=== PATIENT | female | born 1980 | race Caucasian/White ===

== ENCOUNTER 2017-12-04 17:42 | Emergency (ER) | payer OTHER ==
[2017-12-04 18:47] VITALS: BP 116/77
--- NOTE | 2017-12-04 20:26 | UC ---
Sin Edouard Natalie, scribed for John Brown MD on 12/04/17 at 1827 . Dizzy HPI HPI Summary: The pt is a 37 y/o F presenting to [facility] c/o lightheadedness, chest pressure, and increased heart rate starting at 17:00 today. The chest pressure lasted for about fifteen minutes, and the dizziness only lasted for a few minutes. The pressure is described as 3/10. She currently has some dizziness in UC. The pts oral intake has been normal, but she has decreased her sugar intake within the last week. The pt additionally c/o nausea and SOB. She hasnt had any issues exercising. She had a similar episode three years ago. The pt had a cold last week without a cough. LNMP was last week. No hx of anemia, GERD, cardiac diseases, or blood clots. She is not a smoker. - History Of Current Complaint Stated Complaint: LIGHT-HEADED Time Seen by Provider: 12/04/17 17:58 Hx Obtained From: Patient Hx Last Menstrual Period: 11/28/2017 Onset/Duration: Sudden Onset, Still Present Severity Initially: Mild Severity Currently: Mild Pain Intensity: 3 Pain Scale Used: 0-10 Numeric Character: Lightheaded, Dizzy Aggravating Factor(s): Nothing Alleviating Factor(s): Nothing Associated Signs And Symptoms: Positive: Nausea, Chest Pain, SOB, Change In Diet. Negative: Decreased Oral Intake - Allergies/Home Medications Allergies/Adverse Reactions: Allergies Allergy/AdvReac Type Severity Reaction Status Date / Time No Known Allergies Allergy Verified 12/04/17 18:00 Home Medications: Home Medications NK [No Home Medications Reported] 12/04/17 [History Confirmed 12/04/17] PMH/Surg Hx/FS Hx/Imm Hx Cardiovascular History: Other - NEGATIVE: cardiac disease Other Cardiovascular History: . GI/ History: Other - NEGATIVE: GERD Other GI/ History: . - Surgical History Surgical History: Yes Surgery Procedure, Year, and Place: Elbow surgery as child - Family History Known Family History: Negative: Cardiac Disease - Social History Alcohol Use: Occasionally Substance Use Type: None Smoking Status (MU): Never Smoked Tobacco - Immunization History Most Recent Influenza Vaccination: 2013 Most Recent Tetanus Shot: 09/10/14 Most Recent Pneumonia Vaccination: none Review of Systems Respiratory: Shortness Of Breath Cardiovascular: Chest Pain Gastrointestinal: Nausea, Other - decrease in sugar intake Neurological: Other - lightheadedness and dizziness All Other Systems Reviewed And Are Negative: Yes Physical Exam - Summary Physical Exam Summary: General: well-appearing, no pain distress Skin: warm, color reflects adequate perfusion, dry Head: normal Eyes: EOMI, KEON ENT: normal Neck: supple, nontender Respiratory: CTA, breath sounds present Cardiovascular: RRR Abdomen: soft, nontender Bowel: present Musculoskeletal: normal, strength/ROM intact Neurological: normal, sensory/motor intact, A&O x3 Psychological: affect/mood appropriate Triage Information Reviewed: Yes Vital Signs: Initial Vital Signs Temp 99.9 F 12/04/17 18:00 Pulse 76 12/04/17 18:00 Resp 18 12/04/17 18:00 BP 121/86 12/04/17 18:00 Pulse Ox 98 12/04/17 18:00 Vital Signs Reviewed: Yes Diagnostics - EKG Cardiac Rate: NL Cardiac Rhythm: Sinus: Normal - 72 BPM at 17:51 Ectopy: None ST Segment: Normal Dizzy Course/Dx - Course Course Of Treatment: PATIENT REPORTS CHEST TIGHTNESS FOR 15 MINUTES AND LIGHT HEADEDNESS AND RACING HEART FOR APPOROXIMATELY 4 MINUTES. SHE IS NOT HAVING THESE SX IN THE CLINIC. I DISCUSSED GOING TO THE EMERGENCY DEPARTMENT FOR FURTHER EVALUATION TO INCLUDE TROPONIN AND DDIMER. PATIENT PREFER TO GOT GO TO THE ED AND F/U WITH HER PMD. WE DISCUSSED IF THE SX RETURN FOR HER TO GO DIRECTLY TO THE ED; SHE AGREED. - Differential Dx/Diagnosis Provider Diagnoses: LIGHT HEADEDNESS. PALPITATIONS. CHEST PAIN Discharge - Discharge Plan Condition: Stable Disposition: HOME Patient Education Materials: Chest Pain (ED), Heart Palpitations (ED), Lightheadedness (ED) Referrals: Anne-Marie Hess MD [Primary Care Provider] - Additional Instructions: FOLLOW UP WITH YOUR DOCTOR. CALL TOMORROW FOR AN APPOINTMENT. GO TO THE EMERGENCY DEPARTMENT FOR ANY WORSENING OF YOUR CONDITION; CHEST PAIN, YOUR HEART IS RACING, YOU FEEL LIKE YOU ARE GOING TO PASS OUT OR QUESTIONS OR CONCERNS. YOUR BLOOD PRESSURE WAS ELEVATED TODAY; FOLLOW UP WITH YOUR PRIMARY CARE DOCTOR WITHIN ONE WEEK. The documentation as recorded by the Sin lara Natalie accurately reflects the service I personally performed and the decisions made by me, John Brown MD.
[2017-12-05 10:58] LABS: ABS Basophils 0 10^3/ul (0-0.2); ABS Eosinophils 0.1 10^3/ul (0-0.6); ABS Lymphocytes 1.9 10^3/ul (1.0-4.8); ABS Monocytes 0.5 10^3/ul (0-0.8); ABS Neutrophils 4.5 10^3/ul (1.5-7.7); ABS Nucleated RBC 0 10^3/ul; Eosinophil % 0.9 % (0-6); Hematocrit 39 % (35-47); Mean Corpuscular HGB Conc 33 g/dl (31-36); Mean Corpuscular Hemoglobin 28 pg (27-31); Mean Corpuscular Volume 84 fL (80-97); Mean Platelet Volume 8 um3 (7.4-10.4); Nucleated Red Blood Cells % 0.1; Platelet Count 235 10^3/ul (150-450); Red Blood Count 4.65 10^6/ul (4.0-5.4); Red Cell Distribution Width 13 % (10.5-15)
[2017-12-05 11:34] LABS: EGFR Non-African American 93.1 (>60)
== END 2017-12-04 18:53 | disposition home or self-care (01) ==
LOC: UCEAST 17:42
DX: R42 Dizziness and giddiness (principal); R00.2 Palpitations; R07.89 Other chest pain; R06.02 Shortness of breath; R11.0 Nausea
CPT/HCPCS: 36415; 80053; 84443; 85025; 93005; 99212; G0463

== ENCOUNTER 2018-12-08 11:06 | Emergency (ER) | payer OTHER ==
[2018-12-08 14:46] LABS: ABS Basophils 0 10^3/ul (0-0.2); ABS Eosinophils 0 10^3/ul (0-0.6); ABS Lymphocytes 1.7 10^3/ul (1.0-4.8); ABS Monocytes 0.4 10^3/ul (0-0.8); ABS Nucleated RBC 0 10^3/ul; Eosinophil % 0.6 %; Hematocrit 41 % (35-47); Hemoglobin 13.4 g/dl (12.0-16.0); Lymphocyte % 27.6 %; Mean Corpuscular HGB Conc 33 g/dl (31-36); Mean Corpuscular Hemoglobin 28 pg (27-31); Mean Corpuscular Volume 84 fL (80-97); Mean Platelet Volume 6.9 fL (7.4-10.4); Nucleated Red Blood Cells % 0.1; Platelet Count 228 10^3/ul (150-450); Red Blood Count 4.82 10^6/ul (4.00-5.40); Red Cell Distribution Width 13 % (10.5-15); White Blood Count 6.1 10^3/ul (3.5-10.8)
[2018-12-08 15:07] LABS: ALT 19 U/L (7-52); AST 16 U/L (13-39); Albumin 4.3 g/dL (3.2-5.2); Albumin/Globulin Ratio 1.5 (1-3); Alkaline Phosphatase 80 U/L (34-104); Anion Gap 6 mmol/L (2-11); BUN/Creatinine Ratio 13.2 (8-20); Blood Urea Nitrogen 9 mg/dL (6-24); CO2 Carbon Dioxide 26 mmol/L (22-32); Calcium 9.4 mg/dL (8.6-10.3); Chloride 107 mmol/L (101-111); EGFR African American 117.8 (>60); EGFR Non-African American 97.4 (>60); Globulin 2.9 g/dL (2-4); Glucose 94 mg/dL (70-100); Sodium 139 mmol/L (135-145); Total Protein 7.2 g/dL (6.4-8.9)
[2018-12-08 15:14] LABS: HCG Pregnancy < 0.60 mIU/mL
[2018-12-08 15:43] LABS: TSH (Thyroid Stimulating Horm) 1.79 mcIU/mL (0.34-5.60)
--- NOTE | 2018-12-08 16:25 | ED ---
HPI Chest Pain - HPI Summary HPI Summary: A 38 y/o female presents to [facility] with a chief complaint of intermittent CP since 12/05/18. She said that she tried to make an appointment at [facility] but couldnt get in there so she came to the ED. She reports that sometimes her pain radiates to her back and both of her shoulders. At triage she rated her pain as a 0/10. She describes her pain as a dull pressure. Deep breaths worsened her pain. She denies bloodclots in her lungs or legs. She denies using control. She denies a Hx of HTN, HLD or DM. She reports that she is not under an unusual amount of stress. She denies smoking or drug use. She denies a FHx of cardiac disease. - History of Current Complaint Chief Complaint: EDDysrhythmPalp Time Seen by Provider: 12/08/18 15:28 Hx Obtained From: Patient Hx Last Menstrual Period: 11/28/2017 Onset/Duration: Started Hours Ago Timing: Intermittent, Lasting Days Initial Severity: Moderate Current Severity: Mild Pain Intensity: 0 Pain Scale Used: 0-10 Numeric Chest Pain Location: Diffuse Chest Pain Radiates: Yes Chest Pain Radiates To:: Back, Shoulder - both Character: Dull/Aching Aggravating Factor(s): Deep Breaths Alleviating Factor(s): Nothing Associated Signs and Symptoms: Negative: Fever - Allergy/Home Medications Allergies/Adverse Reactions: Allergies Allergy/AdvReac Type Severity Reaction Status Date / Time No Known Allergies Allergy Verified 12/08/18 15:42 PMH/Surg Hx/FS Hx/Imm Hx Endocrine/Hematology History: Denies: Hx Diabetes Cardiovascular History: Denies: Hx Hypertension - Cancer History Hx Chemotherapy: No Hx Radiation Therapy: No - Surgical History Surgery Procedure, Year, and Place: Elbow surgery as child Infectious Disease History: No Infectious Disease History: Denies: Traveled Outside the [place] in Last 30 Days - Family History Known Family History: Negative: Cardiac Disease, Blood Disorder - Social History Alcohol Use: Occasionally Substance Use Type: Reports: None Smoking Status (MU): Never Smoked Tobacco Review of Systems Negative: Fever Positive: Chest Pain Positive: Arthralgia - shoulder pain, Myalgia - back pain All Other Systems Reviewed And Are Negative: Yes Physical Exam - Summary Physical Exam Summary: GENERAL: Patient is a well-developed and nourished F who is lying comfortable in the stretcher. Patient is not in any acute respiratory distress. HEAD AND FACE: Normocephalic EYES: PERRLA, EOMI x 2. EARS: Hearing grossly intact. MOUTH: Oropharynx within normal limits. NECK: Supple, trachea is midline, no adenopathy, no JVD, no carotid bruit. CHEST: Symmetric, no tenderness at palpation LUNGS: Clear to auscultation bilaterally. No wheezing or crackles. CVS: Regular rate and rhythm, S1 and S2 present, no murmurs or gallops appreciated. ABDOMEN: Soft, non-tender. Bowel sounds are normal. No abdominal abnormal pulsations. EXTREMITIES: Full ROM in all major joints, no edema, no cyanosis or clubbing. NEURO: Alert and oriented x 3. No acute neurological deficits. Speech is normal and follows commands. SKIN: Dry and warm Triage Information Reviewed: Yes Vital Signs On Initial Exam: Initial Vitals Temp Pulse Resp BP Pulse Ox 97.8 F 95 20 122/86 98 12/08/18 11:37 12/08/18 11:37 12/08/18 11:37 12/08/18 11:37 12/08/18 11:37 Vital Signs Reviewed: Yes Diagnostics - Vital Signs Vital Signs Temp Pulse Resp BP Pulse Ox 12/08/18 14:02 98.1 F 89 18 132/89 97 12/08/18 11:37 97.8 F 95 20 122/86 98 - Laboratory Lab Results: Lab Results 12/08/18 12/08/18 12/08/18 Range/Units 14:40 14:40 15:52 WBC 6.1 (3.5-10.8) 10^3/ul RBC 4.82 (4.00-5.40) 10^6/ul Hgb 13.4 (12.0-16.0) g/dl Hct 41 (35-47) % MCV 84 (80-97) fL MCH 28 (27-31) pg MCHC 33 (31-36) g/dl RDW 13 (10.5-15) % Plt Count 228 (150-450) 10^3/ul MPV 6.9 L (7.4-10.4) fL Neut % (Auto) 65.3 % Lymph % (Auto) 27.6 % Ritchie % (Auto) 5.8 % Eos % (Auto) 0.6 % Baso % (Auto) 0.7 % Absolute Neuts (auto) 4.0 (1.5-7.7) 10^3/ul Absolute Lymphs (auto) 1.7 (1.0-4.8) 10^3/ul Absolute Monos (auto) 0.4 (0-0.8) 10^3/ul Absolute Eos (auto) 0 (0-0.6) 10^3/ul Absolute Basos (auto) 0 (0-0.2) 10^3/ul Absolute Nucleated RBC 0 10^3/ul Nucleated RBC % 0.1 D-Dimer, Quantitative < 200 (Less Than 230) ng/mL Sodium 139 (135-145) mmol/L Potassium 4.0 (3.5-5.0) mmol/L Chloride 107 (101-111) mmol/L Carbon Dioxide 26 (22-32) mmol/L Anion Gap 6 (2-11) mmol/L BUN 9 (6-24) mg/dL Creatinine 0.68 (0.51-0.95) mg/dL Est GFR ( Amer) 117.8 (>60) Est GFR (Non-Af Amer) 97.4 (>60) BUN/Creatinine Ratio 13.2 (8-20) Glucose 94 (70-100) mg/dL Calcium 9.4 (8.6-10.3) mg/dL Total Bilirubin 0.30 (0.2-1.0) mg/dL AST 16 (13-39) U/L ALT 19 (7-52) U/L Alkaline Phosphatase 80 (34-104) U/L Troponin I 0.00 (<0.04) ng/mL Total Protein 7.2 (6.4-8.9) g/dL Albumin 4.3 (3.2-5.2) g/dL Globulin 2.9 (2-4) g/dL Albumin/Globulin Ratio 1.5 (1-3) Lipase Pending TSH 1.79 (0.34-5.60) mcIU/mL Beta HCG, Quant < 0.60 mIU/mL Result Diagrams: 12/08/18 14:40 12/08/18 14:40 Lab Statement: Any lab studies that have been ordered have been reviewed, and results considered in the medical decision making process. - Radiology CXR Radiology Interpretation Completed By: Radiologist Summary of Radiographic Findings: NO EVIDENCE FOR ACTIVE CARDIOPULMONARY DISEASE. ED physician has reviewed this imaging report. - EKG 11:44 Cardiac Rate: NL - 91 bpm EKG Rhythm: Sinus Rhythm Summary of EKG Findings: EKG at 11:44 showed normal sinus rhythm at 91 bpm with normal axis and normal intervals. Re-Evaluation - Re-Evaluation First Eval Re-Evaluation Time: 17:24 Change: Improved Comment: Patient is ready for discharge Chest Pain Course/Dx - Course Course Of Treatment: A 38 y/o female presents to [facility] with a chief complaint of intermittent CP since 12/05/18. No CP currently. The physical exam was unremarkable. EKG at 11:44 showed normal sinus rhythm at 91 bpm with normal axis and normal intervals. CXR impression: NO EVIDENCE FOR ACTIVE CARDIOPULMONARY DISEASE. Bloodwork and chemistries obtained and are WNL. She is low risk for ACS base on HEART SCORE. The patient will be discharged. I discussed results with patient and she reports feeling better. She is hemodynamically stable and safe for discharge. Strict return precautions given and she will otherwise follow up with her PCP. - Diagnoses Provider Diagnoses: Chest pain Discharge - Sign-Out/Discharge Documenting (check all that apply): Patient Departure - DC Patient Received Moderate/Deep Sedation with Procedure: No - Discharge Plan Condition: Stable Disposition: HOME Patient Education Materials: Chest Pain (DC) Referrals: Anne-Marie Hess MD [Primary Care Provider] - (1-3 days) Simon Voss MD [Medical Doctor] - Additional Instructions: Follow up with Cardiology. RETURN TO THE EMERGENCY DEPARTMENT FOR CHANGING OR WORSENING SYMPTOMS - Billing Disposition and Condition Condition: STABLE Disposition: Home - Attestation Statements Document Initiated by Scribe: Yes Documenting Scribe: Tian Valencia Provider For Whom Jayden is Documenting (Include Credential): Marc Malhotra MD Scribe Attestation: Tian Edouard scribed for Marc Malhotra MD on 12/09/18 at 0921. Scribe Documentation Reviewed: Yes Provider Attestation: The documentation as recorded by the Tian lara accurately reflects the service I personally performed and the decisions made by me, Gaye Malhotra MD Status of Scribe Document: Viewed
[2018-12-08 17:34] VITALS: BP 122/83
== END 2018-12-08 17:34 | disposition home or self-care (01) ==
LOC: ED 11:06
DX: R07.9 Chest pain, unspecified (principal); M25.519 Pain in unspecified shoulder; M54.9 Dorsalgia, unspecified; I10 Essential (primary) hypertension; E78.5 Hyperlipidemia, unspecified; E11.9 Type 2 diabetes mellitus without complications
CPT/HCPCS: 36415; 71046; 80053; 83690; 84443; 84484; 84702; 85025; 85379; 93005; 99283